=== PATIENT | female | born 1995 | race Caucasian/White ===

== ENCOUNTER → 2022-07-25 14:56 | Outpatient (BNVA) | payer OTHER, SELFPAY | PROVIDERS: Visit Provider Physician Assistant Surgical | DX: E66.01 Morbid (severe) obesity due to excess calories (principal); Z98.84 Bariatric surgery status; Z68.43 Body mass index [BMI] 50.0-59.9, adult | CPT/HCPCS: 99212 ==

== ENCOUNTER 2022-07-27 08:45 | Outpatient (REF) | payer OTHER, SELFPAY ==
[2022-07-27 09:06] LABS: MANUAL DIFF FLAG NO
[2022-07-27 09:19] LABS: Basophils Percent Auto 0.2 % (0-2); Eosinophils Absolute Auto 0.1 X10*3/uL (0.0-0.4); Eosinophils Percent Auto 1.2 % (0-4); Hemoglobin 9.6 g/dl (12.0-16.0); Imm Gran Abs Auto 0.02 X10*3/uL (0.00-0.03); Imm Gran Pct Auto 0.2 % (0.0-0.4); Lymphocytes Absolute Auto 1.9 X10*3/uL (1.2-4.9); Mean Corpuscular HGB Conc 29.1 g/dl (31.0-35.0); Mean Corpuscular Hemoglobin 20.5 pg (27.0-33.0); Mean Corpuscular Volume 70.4 fL (80.0-98.0); Mean Platelet Volume 8.8 fL (9.4-12.3); Monocytes Absolute Auto 0.7 X10*3/uL (0.1-1.2); Monocytes Percent Auto 7.7 % (2-11); Neutrophils Absolute Auto 6.4 x10*3/uL (2.0-8.3); Neutrophils Percent Auto 69.7 % (45-73); Platelet Count 528 X10*3/uL (160-400); Red Blood Count 4.69 X10*6/uL (4.20-5.50); Red Cell Distribution Width 16.3 % (11.0-16.0); White Blood Count 9.1 X10*3/uL (4.8-10.8)
[2022-07-27 09:42] LABS: Estimated Average Glucose 108 mg/dL; Hemoglobin A1c % 5.4 %
[2022-07-27 10:06] LABS: Alanine Aminotransferase 10 U/L (0-31); Albumin Level 4.2 g/dL (3.5-5.0); Alkaline Phosphatase 86 U/L (39-117); Anion Gap 12 (12-20); Aspartate Amino Transferase 14 U/L (5-31); Bilirubin Total 0.4 mg/dL (0.0-1.0); Blood Urea Nitrogen 9 mg/dL (9-16); C Reactive Protein 0.31 mg/dL (< or = 0.50); Calcium 9.1 mg/dL (8.4-10.2); Carbon Dioxide 24 mmol/L (22-29); Chloride 105 mmol/L (96-108); Cholesterol 110 mg/dL; Estimated Glomerular Filt Rate > 60; Glucose Random 93 mg/dL (60-115); HDL Cholesterol 46 mg/dL; Iron 24 mcg/dL (30-160); LDL Cholesterol Calculated 50 mg/dl; Percent Iron Saturation 5 % (15-50); Potassium 4.3 mmol/L (3.3-5.1); Sodium 137 mmol/L (135-145); Total Iron Binding Capacity 500 mcg/dL (228-428); Triglycerides 71 mg/dL; Unsaturated Iron Binding 476 ug/dL
[2022-07-27 10:30] LABS: Ferritin 2 ng/mL (10-122); Insulin 15 uU/mL (2-29); TSH reflex Free T4 0.79 uIU/mL (0.32-4.0); Vitamin D 25-OH Total 10.5 ng/mL (>30)
[2022-07-27 11:03] LABS: Folate 12.8 ng/mL (> or = 4.0); Vitamin B12 279 pg/mL (200-900)
[2022-07-29 10:17] LABS: Calcium (PTHI) 8.9 mg/dL (8.6-10.2); PTHI 89 pg/mL (16-77)
[2022-07-31 17:22] LABS: Vitamin B1 6 nmol/L (8-30)
[2022-07-31 19:47] LABS: Zinc 65 mcg/dL (60-130)
[2022-08-01 09:37] LABS: Vitamin A 46 mcg/dL (38-98)
== END 2022-07-27 08:46 | disposition home or self-care (01) ==
LOC: HO.LAB 08:45
PROVIDERS: Visit Provider Physician Assistant Surgical
DX: Z98.84 Bariatric surgery status (principal)
CPT/HCPCS: 36415; 80053; 80061; 82306; 82607; 82728; 82746; 83036; 83525; 83540; 83970; 84425; 84443; 84590; 84630; 85025; 86140